=== PATIENT | female | born 1950 | race Caucasian/White ===

== ENCOUNTER 2019-03-15 13:39 | Emergency (ER) | payer MEDICARE ==
[2019-03-15] MEDS ORDERED: KETOROLAC TROMETHAMINE 60 MG/2 ML SDV IM ONE (15:22)
[2019-03-15] MEDS ORDERED: OXYCODONE HCL IR 5 MG TABLET PO ONE (15:22)
--- NOTE | 2019-03-15 15:27 | ER Document Report ---
HPI - HPI Time Seen by Provider: 03/15/19 15:11 Pain Level: 5 Notes: Patient is a 68-year-old female with a history of hypertension and type 2 diabetes as well as chronic back and joint pains under the care of pain management who presents complaining of right buttock pain that is been present for 5 days, but is a chronic issue otherwise. Patient states that she has had steroid injections under fluoroscopy in this area prior, but is not scheduled for another injection for another 9 days. Patient states that she is unable to get an appointment with her pain management provider before that. She is otherwise able to eat and drink without difficulty. She is urinating normally. Patient states that she has had to walk with a walker over the last several days because of the pain in her buttock. The pain does not radiate. Pain is described as a sharp pain. No injury. Denies any headache, fever, URI, sore throat, chest pain, palpitations, syncope, cough, shortness of breath, wheeze, dyspnea, abdominal pain, nausea/vomiting/diarrhea, urinary retention, dysuria, hematuria, loss of control of bowel or bladder, numbness/tingling, saddle anesthesia, muscle paralysis/weakness, or rash. - ROS Systems Reviewed and Negative: Yes All other systems reviewed and negative - REPRODUCTIVE Reproductive: DENIES: : Past Medical History - Social History Smoking Status: Never Smoker Family History: Reviewed & Not Pertinent - Past Medical History Cardiac Medical History: Reports: Hx Hypertension - STRESS INDUCED Denies: Hx Atrial Fibrillation, Hx Congestive Heart Failure, Hx Coronary Artery Disease, Hx Heart Attack, Hx Hypercholesterolemia, Hx Peripheral Vascular Disease, Hx Pulmonary Embolism, Hx Heart Murmur Pulmonary Medical History: Reports: Hx Tuberculosis - POSITIVE TB TEST IN THE , NEGATIVE CXR Denies: Hx Asthma, Hx Bronchitis, Hx COPD, Hx Pneumonia, Hx Respiratory Failure, Hx Sleep Apnea Neurological Medical History: Denies: Hx Cerebrovascular Accident, Hx Seizures Malignancy Medical History: Denies: Hx Lung Cancer GI Medical History: Reports: Hx Gastroesophageal Reflux Disease. Denies: Hx Crohn's Disease, Hx Hepatitis, Hx Hiatal Hernia, Hx Ulcer Musculoskeletal Medical History: Reports Hx Arthritis, Denies Hx Fibromyalgia, Denies Hx Muscular Dystrophy Traumatic Medical History: Denies: Hx Fractures Infectious Medical History: Denies: Hx Hepatitis Past Surgical History: Denies: Hx Hysterectomy, Hx Mastectomy, Hx Open Heart Surgery, Hx Pacemaker Vertical Provider Document - CONSTITUTIONAL Agree With Documented VS: Yes Notes: PHYSICAL EXAMINATION: GENERAL: Well-appearing, well-nourished and in no acute distress. LUNGS: Breath sounds clear to auscultation bilaterally and equal. No wheezes rales or rhonchi. HEART: Regular rate and rhythm ABDOMEN: Soft, nontender, nondistended abdomen. No guarding, no rebound. Normal bowel sounds present. No CVA tenderness bilaterally. No pulsatile mass Musculoskeletal: LE's b/l: FROM to passive/active. Strength 5+/5. No deficits noted. No bony tenderness of extremities. Back: FROM to passive/active. Strength 5+/5. No vertebral point tenderness, stepoffs, or deformities. No other bony tenderness, erythema, swelling, or ecchymosis. SLR negative b/l. + mild rt SI jt tenderness. No foot drop Extremities: No cyanosis, clubbing, or edema b/l. Peripheral pulses 2+. Capillary refill less than 2 seconds. NEUROLOGICAL: Normal speech, limping gait. Normal sensory, motor exams. Reflexes 2+ b/l. PSYCH: Normal mood, normal affect. SKIN: Warm, Dry, normal turgor, no rashes or lesions noted. - INFECTION CONTROL TRAVEL OUTSIDE OF THE [place] IN LAST 30 DAYS: No Course - Re-evaluation Re-evalutation: 03/15/19 15:24 Patient is an afebrile, well-hydrated, 68-year-old female who presents to the ED with acute on chronic rt buttock pain. Vitals are acceptable. PE is otherwise unremarkable for any focal neurological deficits. Patient was given Toradol and a single dose of Oxy-IR (no rx for home). She has no significant tachycardia, tachypnea, or hypoxia. She is nontoxic-appearing and is tolerating p.o. without difficulties. There are no signs of infection. No other red flag symptoms noted. No other labs or imaging warranted at this time based on H&P. Low suspicion for any meningitis, fracture, expanding/ruptured AAA, cauda equina syndrome, epidural mass lesion/abscess, herniated disc causing severe spinal stenosis, or other systemic infection at this time. Patient is aware that this condition can change from initial presentation and that she needs monitor symptoms closely for any acute changes. I will send her home with a pr escription for voltaren. Conservative measures otherwise for symptoms. Recheck with your PCM/Pain management in 3-5 days. Consider consult with orthopedic/physical therapy. Return to the ED with any worsening/concerning symptoms otherwise as reviewed discharge. Patient is in agreement. - Vital Signs Vital signs: Temp Pulse Resp BP Pulse Ox 98.2 F 101 H 18 140/82 H 99 03/15/19 13:44 03/15/19 13:44 03/15/19 13:44 03/15/19 13:44 03/15/19 13:44 Discharge - Discharge Clinical Impression: Right buttock pain Condition: Stable Disposition: HOME, SELF-CARE Additional Instructions: Rest, Ice, Compression, Elevation Tylenol/ibuprofen as needed Light stretches daily Strength exercises as able Moist heat and massage may help F/u with your PCP/Pain Management in 3-5 days for a recheck Consider consult(s) with Orthopedics/physical therapy for ongoing/worsening symptoms Return to the ED with any worsening symptoms and/or development of fever, headache, chest pain, palpitations, syncope, shortness of breath, trouble breathing, abdominal pain, n/v/d, muscle weakness/paralysis, numbness/tingling, swelling, redness, or other worsening symptoms that are concerning to you. Prescriptions: Diclofenac Sodium [Voltaren] 4 gm TP QID PRN #100 gel..gm. PRN Reason: Forms: Elevated Blood Pressure Referrals: SRIRAM HORTON MD [Primary Care Provider] - Follow up as needed [facility] [Provider Group] - Follow up as needed
[2019-03-15 16:11] VITALS: BP 155/64
== END 2019-03-15 16:10 | disposition home or self-care (01) ==
LOC: ER 13:39
DX: M79.10 Myalgia, unspecified site (principal); G89.29 Other chronic pain; E11.9 Type 2 diabetes mellitus without complications; I10 Essential (primary) hypertension
CPT/HCPCS: J1885; A9270

== ENCOUNTER → 2019-03-25 | Outpatient (CLI) | payer MEDICARE, OTHER ==
--- NOTE | 2019-03-25 11:58 | RADIOLOGY REPORT (SQ) ---
EXAM DESCRIPTION: CHEST PA/LATERAL COMPLETED DATE/TIME: 03/25/2019 11:34 am REASON FOR STUDY: PRE OP COMPARISON: None. EXAM PARAMETERS: NUMBER OF VIEWS: two views TECHNIQUE: Digital Frontal and Lateral radiographic views of the chest acquired. RADIATION DOSE: NA LIMITATIONS: none FINDINGS: LUNGS AND PLEURA: No opacities, masses or pneumothorax. No pleural effusion. MEDIASTINUM AND HILAR STRUCTURES: No masses or contour abnormalities. HEART AND VASCULAR STRUCTURES: Heart normal size. No evidence for failure. BONES: No acute findings. HARDWARE: None in the chest. OTHER: No other significant finding. IMPRESSION: NO SIGNIFICANT RADIOGRAPHIC FINDING IN THE CHEST. TECHNICAL DOCUMENTATION: JOB ID: [id number] [employer]- All Rights Reserved Reading location - IP/workstation name: [email or web address]
[2019-03-25 12:13] LABS: ABSOLUTE LYMPHOCYTES (AUTO) 2.2 10^3/uL (0.5-4.7); ABSOLUTE MONOCYTES (AUTO) 0.4 10^3/uL (0.1-1.4); ABSOLUTE NEUT (AUTO) 4.1 10^3/uL (1.7-8.2); BASOPHILS % (AUTO) 0.4 % (0-2); EOSINOPHILS % (AUTO) 0.1 % (0-6); HEMATOCRIT 32.5 % (36.0-47.0); HEMOGLOBIN 10.4 g/dL (12.0-15.5); LYMPHOCYTES % (AUTO) 32.7 % (13-45); MEAN CORPUSCULAR HEMOGLOBIN 22.1 pg (27.0-33.4); MEAN CORPUSCULAR HGB CONC 31.9 g/dL (32.0-36.0); MEAN CORPUSCULAR VOLUME 69 fl (80-97); MONOCYTES % (AUTO) 6.2 % (3-13); PLATELET COUNT 320 10^3/uL (150-450); RED BLOOD COUNT 4.69 10^6/uL (3.72-5.28); RED CELL DISTRIBUTION WIDTH 17.6 % (11.5-14.0); SEGMENTED NEUTROPHILS % (AUTO) 60.6 % (42-78); TOTAL CELLS COUNTED % (AUTO) 100 %; WHITE BLOOD COUNT 6.8 10^3/uL (4.0-10.5)
[2019-03-25 12:29] LABS: APPEARANCE,URINE CLEAR; BILIRUBIN,URINE NEGATIVE (NEGATIVE); COLOR,URINE YELLOW; GLUCOSE, URINE >=500 mg/dL (NEGATIVE); KETONES,URINE NEGATIVE (NEGATIVE); LEUKOCYTE ESTERASE,URINE NEGATIVE (NEGATIVE); NITRITE,URINE NEGATIVE (NEGATIVE); PROTEIN,URINE NEGATIVE (NEGATIVE); URINE SPECIFIC GRAVITY 1.014; UROBILINOGEN,URINE NEGATIVE mg/dL (<2.0)
[2019-03-25 12:44] LABS: ANION GAP 18 (5-19); BLOOD UREA NITROGEN 17 mg/dL (7-20); CALCIUM 10.8 mg/dL (8.4-10.2); CARBON DIOXIDE 21 mmol/L (22-30); CHLORIDE 98 mmol/L (98-107); GLUCOSE 202 mg/dL (75-110); POTASSIUM 4.8 mmol/L (3.6-5.0)
[2019-03-25 12:58] LABS: ADD MANUAL MICROSCOPIC YES
[2019-03-25 12:59] LABS: RBC,URINE NONE SEEN /HPF; WBC,URINE RARE /HPF
--- NOTE | 2019-03-26 08:46 | EKG REPORT ---
SEVERITY:- NORMAL ECG - SINUS RHYTHM : Confirmed by: Valentine Mcneil MD 26-Mar-2019 08:45:56
== END ==
LOC: OD 10:56
PROVIDERS: ATTEND Orthopaedic Surgery
DX: M16.11 Unilateral primary osteoarthritis, right hip (principal); I10 Essential (primary) hypertension; E11.9 Type 2 diabetes mellitus without complications
CPT/HCPCS: 36415; 71046; 80048; 81001; 83036; 85025; 93005; 93010

== ENCOUNTER → 2019-05-06 | Outpatient (CLI) | payer MEDICARE, OTHER ==
[2019-05-06 13:39] LABS: ABSOLUTE EOSINOPHILS # (AUTO) 0.2 10^3/uL (0.0-0.6); ABSOLUTE LYMPHOCYTES (AUTO) 2.2 10^3/uL (0.5-4.7); ABSOLUTE MONOCYTES (AUTO) 0.4 10^3/uL (0.1-1.4); ABSOLUTE NEUT (AUTO) 4.7 10^3/uL (1.7-8.2); BASOPHILS % (AUTO) 0.5 % (0-2); HEMATOCRIT 35.2 % (36.0-47.0); HEMOGLOBIN 11.2 g/dL (12.0-15.5); LYMPHOCYTES % (AUTO) 29.5 % (13-45); MEAN CORPUSCULAR HEMOGLOBIN 23.2 pg (27.0-33.4); MEAN CORPUSCULAR HGB CONC 31.7 g/dL (32.0-36.0); MEAN CORPUSCULAR VOLUME 73 fl (80-97); PLATELET COUNT 278 10^3/uL (150-450); RED BLOOD COUNT 4.82 10^6/uL (3.72-5.28); RED CELL DISTRIBUTION WIDTH 21.4 % (11.5-14.0); TOTAL CELLS COUNTED % (AUTO) 100 %; WHITE BLOOD COUNT 7.4 10^3/uL (4.0-10.5)
[2019-05-06 13:44] LABS: APPEARANCE,URINE CLEAR; BILIRUBIN,URINE NEGATIVE (NEGATIVE); COLOR,URINE STRAW; GLUCOSE, URINE 50 mg/dL (NEGATIVE); KETONES,URINE NEGATIVE (NEGATIVE); LEUKOCYTE ESTERASE,URINE SMALL (NEGATIVE); NITRITE,URINE NEGATIVE (NEGATIVE); PROTEIN,URINE NEGATIVE (NEGATIVE); URINE SPECIFIC GRAVITY 1.006; UROBILINOGEN,URINE NEGATIVE mg/dL (<2.0)
[2019-05-06 14:06] LABS: ANION GAP 18 (5-19); BLOOD UREA NITROGEN 9 mg/dL (7-20); CALCIUM 9.9 mg/dL (8.4-10.2); CARBON DIOXIDE 24 mmol/L (22-30); CHLORIDE 101 mmol/L (98-107); GLUCOSE 183 mg/dL (75-110); POTASSIUM 4.8 mmol/L (3.6-5.0)
== END ==
LOC: OD 11:48
PROVIDERS: ATTEND Orthopaedic Surgery
DX: Z01.812 Encounter for preprocedural laboratory examination (principal); M16.11 Unilateral primary osteoarthritis, right hip; E11.9 Type 2 diabetes mellitus without complications; I10 Essential (primary) hypertension
CPT/HCPCS: 36415; 80048; 81001; 83036; 85025

== ENCOUNTER 2019-05-26 05:12 | Inpatient (IN) | payer MEDICARE, OTHER ==
[~2019-05-26 05:12] MED LIST: BUPIVACAINE INJ/PF LIPOSOME/PF 266 MG/20 ML SDV INJ PRN; CEFAZOLIN INJ 1 GM VIAL IV PRN; IBUPROFEN 800 MG in NORMAL SALINE 250 ML IV PRN; LACTATED RINGERS 1000 ML IV PRN; LIDOCAINE 0.5% INJ-PF (5 MG/ML) 50 ML SDV SUBCUT PRN; ONDANSETRON HCL INJ/PF 4 MG/2 ML SDV ONE; OXYCODONE HCL SR 10 MG TABLET PO PRN; PANTOPRAZOLE SODIUM 20 MG TABLET.DR PO PRN; PHENYLEPHRINE HCL INJ/PF 10 MG/1 ML SDV ONE; VANCOMYCIN HCL 1,000 MG in DEXTROSE 5%-WATER 250 ML IV SCH
[2019-05-26] MEDS ORDERED: PANTOPRAZOLE SODIUM 20 MG TABLET.DR PO ONE (06:14)
[2019-05-26] MEDS ORDERED: CEFAZOLIN INJ 1 GM VIAL ONE (06:14)
[2019-05-26] MEDS ORDERED: OXYCODONE HCL SR 10 MG TABLET PO ONE (06:14)
[2019-05-26] MEDS ORDERED: MIDAZOLAM 2 MG/2 ML INJ ONE (06:55)
[2019-05-26] MEDS ORDERED: FENTANYL CITRATE INJ/PF 100 MCG/2 ML AMPUL ONE (06:55)
[2019-05-26] MEDS ORDERED: KETAMINE HCL INJ 500 MG/10 ML VIAL ONE (06:55)
[2019-05-26] MEDS ORDERED: PROPOFOL INJ 200 MG/20 ML VIAL IV ONE (06:56)
[2019-05-26] MEDS ORDERED: TRANEXAMIC ACID INJ/PF 1,000 MG/10 ML SDV ONE ×2 (07:10→09:29)
[2019-05-26 07:44] LABS: POTASSIUM 3.7 mmol/L (3.6-5.0)
[2019-05-26] MEDS ORDERED: DIPHENHYDRAMINE HCL 50 MG/ML VIAL IV PRN ×2 (08:09→08:32)
[2019-05-26] MEDS ORDERED: PROMETHAZINE HCL INJ 25 MG/1 ML VIAL IV PRN (08:09)
[2019-05-26] MEDS ORDERED: MORPHINE SULFATE 10 MG/ML INJ IV PRN (08:09)
[2019-05-26] MEDS ORDERED: MEPERIDINE HCL/PF INJ 25 MG/1 ML DISP.SYRIN IV PRN (08:09)
[2019-05-26] MEDS ORDERED: FENTANYL CITRATE INJ/PF 100 MCG/2 ML AMPUL IV PRN ×3 (08:09)
--- NOTE | 2019-05-26 08:30 | Operative Report ---
Operative Report DATE OF SURGERY: 05/26/19 PREOPERATIVE DIAGNOSIS: Right hip arthritis OPERATION: Right hip arthroplasty SURGEON: VERA AGARWAL ANESTHESIA: Spinal TISSUE REMOVED OR ALTERED: Femoral head to pathology ESTIMATED BLOOD LOSS: 75 PROCEDURE: Implants used: Femur: Nicolas Accolade 2 size 3 stem Acetabular shell: 52 mm hemispherical shell Liner: 36 mm flat cross-link polyethylene liner Head: 36 mm chrome cobalt head standard neck The patient is placed in a left lateral decubitus position on the operating table. The right lower extremity and hindquarter is prepped and draped in a sterile fashion. A curvilinear incision was made over the greater trochanter a posterior approach the hip was taken. The femoral head is dislocated and the femoral neck transected using an oscillating saw. Attention was next turned to the acetabulum. Soft tissues cleared off the acetabulum using electrocautery. The acetabulum was then prepared using a series of hemispherical reamers until a 52 millimeters reamer is seated. Subsequently a 52 millimeters Alva titanium hemispherical shell is impacted into position. A standard flat 36 millimeters cross-link liner is impacted into the shell. Attention was next turned to the femur. Access is gained to the femoral canal using a box osteotome to the piriformis fossa. The femur is then prepared using a series of broaches until a number 3 broach is seated. A trial reduction was now performed using a 36 millimeters head with standard neck. Preoperative leg length was recreated and is excellent anterior posterior stability. A decision was made to proceed with the above construct. All trial implants were removed. The wound is irrigated with pulsed lavage. A number 3 stem is impacted into the femoral canal. A trial reduction was again performed with a 36 mm head and a standard neck. Findings as previously. The hip was dislocated one last time and the final chrome-cobalt head is impacted onto the trunnion. The hip was reduced. Wound is copiously irrigated with pulsed lavage. Sent closed in layers using interrupted Vicryl followed by husam. A sterile dressing is applied and the patient's returned to recovery room in satisfactory patient.
[2019-05-26] MEDS ORDERED: MAG HYDROX/AL HYDROX/SIMETH SUSP 30 ML UDCUP PO PRN (08:32)
[2019-05-26] MEDS ORDERED: ZOLPIDEM TARTRATE 5 MG TABLET PO PRN (08:32)
[2019-05-26] MEDS ORDERED: ONDANSETRON 4 MG TAB.RAPDIS PO PRN (08:32)
[2019-05-26] MEDS ORDERED: RINGERS SOLUTION,LACTATED 1,000 ML IV PRN (08:32)
[2019-05-26] MEDS ORDERED: GLUCAGON,HUMAN RECOMB 1 MG INJ IM PRN (09:00)
[2019-05-26] MEDS ORDERED: DEXTROSE 40% GEL 15 GM TUBE PO PRN (09:00)
[2019-05-26] MEDS ORDERED: DEXTROSE 50%-WATER SYRINGE 25 GM/50 ML DOSE IV PRN (09:00)
[2019-05-26] MEDS ORDERED: DEXTROSE 50%-WATER SYRINGE 12.5 GM/25 ML DOSE IV PRN (09:00)
[2019-05-26] MEDS ORDERED: DEXTROSE 40% GEL 15 GM TUBE X 2 PO PRN (09:00)
--- NOTE | 2019-05-26 09:24 | RADIOLOGY REPORT (SQ) ---
EXAM DESCRIPTION: PELVIS AP COMPLETED DATE/TIME: 05/26/2019 9:15 am REASON FOR STUDY: Post Op Long Cassette in PACU M16.11 UNILATERAL PRIMARY OSTEOARTHRITIS, RIGHT H IP COMPARISON: None. NUMBER OF VIEWS: One view(s). TECHNIQUE: Digital radiographic images of the right hip post-procedure. LIMITATIONS: None. FINDINGS: BONES: No worrisome or unexpected findings post-procedure. DEVICE: Total hip replacement. Components of the device in appropriate location. SOFT TISSUES: No worrisome findings. Expected postoperative soft tissue changes. Large calcified u terine fibroid is noted. IMPRESSION: SATISFACTORY POSTOPERATIVE RIGHT HIP. TECHNICAL DOCUMENTATION: JOB ID: [id number] [employer]- All Rights Reserved Reading location - IP/workstation name: [email or web address]
[2019-05-26] MEDS ORDERED: ONDANSETRON HCL INJ/PF 4 MG/2 ML SDV ONE (09:42)
[2019-05-26] MEDS ORDERED: TRANEXAMIC ACID INJ/PF 1,000 MG/10 ML SDV IV ONE (10:00)
[2019-05-26] MEDS: INSULIN LISPRO 100 UNIT/ML 3 ML VIAL SUBCUT SCH ×3 (13:34→21:23)
[2019-05-26] MEDS: OXYCODONE HCL IR 5 MG TABLET PO PRN ×2 (13:41→20:58)
[2019-05-26] MEDS: IBUPROFEN 800 MG in NORMAL SALINE 250 ML IV SCH ×2 (13:57→21:34)
[2019-05-26] MEDS: ASPIRIN 81 MG TABLET, ENT COATED PO SCH (14:00)
[2019-05-26] MEDS: SENNOSIDES/DOCUSATE 8.6-50 MG 1 EACH TABLET PO SCH (17:05)
[2019-05-26] MEDS: PREGABALIN 75 MG CAPSULE PO SCH ×2 (17:05→18:37)
[2019-05-26] MEDS: ACETAMINOPHEN 325 MG TABLET PO PRN (17:05)
[2019-05-26] MEDS ORDERED: (PENDING PHARMACY ID) (Diclofenac Sodium [Voltaren] 4 GM) TP PRN (17:52)
[2019-05-26] MEDS ORDERED: PANTOPRAZOLE SODIUM 40 MG TABLET.DR PO PRN (17:52)
[2019-05-26] MEDS ORDERED: (PENDING PHARMACY ID) (Naproxen [Naprosyn] 500 MG) PO PRN (17:52)
[2019-05-26] MEDS ORDERED: TIZANIDINE HCL 4 MG TABLET PO PRN (17:52)
[2019-05-26] MEDS ORDERED: NAPROXEN 250 MG TABLET PO PRN (17:58)
[2019-05-26] MEDS ORDERED: (PENDING PHARMACY ID) (Buprenorphine [Butrans] 1 PATCH) TD SCH (18:00)
[2019-05-26] MEDS: PREGABALIN 100 MG CAPSULE PO SCH ×2 (18:00→21:23)
[2019-05-26] MEDS ORDERED: PREGABALIN 100 MG CAPSULE ONE (18:39)
[2019-05-26] MEDS ORDERED: VANCOMYCIN HCL 1,000 MG in DEXTROSE 5%-WATER 250 ML IV ONE (20:30)
[2019-05-26] MEDS: OXYCODONE HCL SR 10 MG TABLET PO SCH (21:22)
[2019-05-26] MEDS: ONDANSETRON HCL INJ/PF 4 MG/2 ML SDV IV PRN (21:23)
[2019-05-26] MEDS: INSULIN GLARGINE,HUM.REC.ANLOG 1,000 UNIT/10 ML VIAL SUBCUT SCH (21:24)
[2019-05-27] MEDS: IBUPROFEN 800 MG in NORMAL SALINE 250 ML IV SCH ×3 (05:07→21:40)
[2019-05-27] MEDS: PANTOPRAZOLE SODIUM 40 MG TABLET.DR PO SCH (05:08)
[2019-05-27 06:02] LABS: HEMATOCRIT 29.2 % (36.0-47.0); HEMOGLOBIN 9.6 g/dL (12.0-15.5); MEAN CORPUSCULAR HEMOGLOBIN 24.1 pg (27.0-33.4); MEAN CORPUSCULAR HGB CONC 32.7 g/dL (32.0-36.0); MEAN CORPUSCULAR VOLUME 74 fl (80-97); PLATELET COUNT 215 10^3/uL (150-450); RED BLOOD COUNT 3.96 10^6/uL (3.72-5.28); WHITE BLOOD COUNT 6.3 10^3/uL (4.0-10.5)
[2019-05-27 06:21] LABS: ANION GAP 8 (5-19); BLOOD UREA NITROGEN 8 mg/dL (7-20); CALCIUM 8.8 mg/dL (8.4-10.2); CARBON DIOXIDE 30 mmol/L (22-30); CHLORIDE 102 mmol/L (98-107); GLUCOSE 170 mg/dL (75-110)
--- NOTE | 2019-05-27 07:21 | PDOC PROGRESS REPORT ---
Subjective Progress Note for:: 05/27/19 Reason For Visit: M16.11 UNILATERAL PRIMARY OSTEOARTHRITIS, RIGHT HI 68-year-old female now postop day 1 status post right hip arthroplasty. Limited progress with physical therapy yesterday because of complaints of pain. Physical Exam Vital Signs: Temp Pulse Resp BP Pulse Ox 36.8 C 83 18 139/48 H 96 05/26/19 17:00 05/26/19 17:00 05/26/19 17:00 05/26/19 17:00 05/26/19 17:00 Intake & Output 05/26/19 05/27/19 05/28/19 06:59 06:59 06:59 Intake Total 0 5609 Output Total 4099 Balance 0 1510 Weight 85 kg Physical Exam: When I enter the room the patient sleeping soundly. She is awoken. She states that her pain is under better control at this point. She continues to have problems with active flexion of the lower extremity because of pain. General appearance: PRESENT: no acute distress, mild distress Head exam: PRESENT: normocephalic Respiratory exam: PRESENT: unlabored Cardiovascular exam: PRESENT: RRR Pulses: PRESENT: +1 pedal pulses bilateral GI/Abdominal exam: PRESENT: soft Rectal exam: PRESENT: deferred Extremities exam: PRESENT: other - Right hip dressing clean dry and intact. Leg lengths equal. Distal neurovascular examination is intact. Musculoskeletal exam: PRESENT: other Neurological exam: PRESENT: alert, awake, oriented to person, oriented to place, oriented to time, oriented to situation. ABSENT: motor sensory deficit Psychiatric exam: PRESENT: appropriate affect, normal mood. ABSENT: homicidal ideation, suicidal ideation Skin exam: PRESENT: dry, intact, warm. ABSENT: cyanosis, rash Results Laboratory Results: 05/27/19 03:52 05/27/19 03:52 05/26/19 05/26/19 05/27/19 05:50 05:50 03:52 WBC 6.3 RBC 3.96 Hgb 9.6 L Hct 29.2 L MCV 74 L MCH 24.1 L MCHC 32.7 RDW 20.0 H Plt Count 215 Sodium Potassium 3.7 Chloride Carbon Dioxide Anion Gap BUN Creatinine Est GFR ( Amer) Glucose 120 H Calcium Blood Type O POSITIVE Antibody Screen NEGATIVE 05/27/19 03:52 WBC RBC Hgb Hct MCV MCH MCHC RDW Plt Count Sodium 139.8 Potassium 4.0 Chloride 102 Carbon Dioxide 30 Anion Gap 8 BUN 8 Creatinine 0.67 Est GFR ( Amer) > 60 Glucose 170 H Calcium 8.8 Blood Type Antibody Screen Impressions: Pelvis X-Ray 05/26/19 08:33 IMPRESSION: SATISFACTORY POSTOPERATIVE RIGHT HIP. Status: Imported from PACS Assessment & Plan - Diagnosis (1) Arthritis of right hip Is this a current diagnosis for this admission?: Yes Plan: Patient to be mobilized with physical therapy and weightbearing as tolerated basis. Patient anticipates discharge home with home health services. She is advised that she needs to approach physical therapy aggressively in order for her to have the necessary functional level to permit this to happen. - Time Time Spent with patient: 15-24 minutes Anticipated discharge: Home with Homehealth Within: within 24 hours
[2019-05-27] MEDS: INSULIN LISPRO 100 UNIT/ML 3 ML VIAL SUBCUT SCH ×4 (08:00→21:41)
[2019-05-27] MEDS: METFORMIN HCL 500 MG TABLET PO SCH ×2 (11:00→16:00)
[2019-05-27] MEDS: PRENATAL VITAMIN W DHA CAPSULE PO SCH (11:40)
[2019-05-27] MEDS: OXYCODONE HCL SR 10 MG TABLET PO SCH ×2 (11:41→21:40)
[2019-05-27] MEDS: SENNOSIDES/DOCUSATE 8.6-50 MG 1 EACH TABLET PO SCH ×2 (11:41→18:29)
[2019-05-27] MEDS: ATORVASTATIN CALCIUM 40 MG TABLET PO SCH (11:41)
[2019-05-27] MEDS: ACETAMINOPHEN 325 MG TABLET PO PRN ×2 (11:42→17:11)
[2019-05-27] MEDS: LOSARTAN POTASSIUM 50 MG TABLET PO SCH (11:42)
[2019-05-27] MEDS: PREGABALIN 100 MG CAPSULE PO SCH ×3 (11:43→21:41)
[2019-05-27] MEDS: ASPIRIN 81 MG TABLET, ENT COATED PO SCH (11:43)
[2019-05-27] MEDS: HYDROCHLOROTHIAZIDE 25 MG TABLET PO SCH (11:49)
[2019-05-27] MEDS: PREGABALIN 75 MG CAPSULE PO SCH ×2 (11:51→18:30)
[2019-05-27] MEDS: OXYCODONE HCL IR 5 MG TABLET PO PRN (17:10)
[2019-05-27] MEDS: ONDANSETRON HCL INJ/PF 4 MG/2 ML SDV IV PRN (21:40)
[2019-05-27] MEDS: INSULIN GLARGINE,HUM.REC.ANLOG 1,000 UNIT/10 ML VIAL SUBCUT SCH (21:42)
[2019-05-28] MEDS: IBUPROFEN 800 MG in NORMAL SALINE 250 ML IV SCH ×2 (05:04→14:16)
[2019-05-28] MEDS: PANTOPRAZOLE SODIUM 40 MG TABLET.DR PO SCH (05:05)
[2019-05-28 06:25] LABS: HEMATOCRIT 26.7 % (36.0-47.0); HEMOGLOBIN 8.8 g/dL (12.0-15.5); MEAN CORPUSCULAR HEMOGLOBIN 24.5 pg (27.0-33.4); MEAN CORPUSCULAR HGB CONC 33.1 g/dL (32.0-36.0); MEAN CORPUSCULAR VOLUME 74 fl (80-97); PLATELET COUNT 187 10^3/uL (150-450); RED BLOOD COUNT 3.61 10^6/uL (3.72-5.28); RED CELL DISTRIBUTION WIDTH 19.9 % (11.5-14.0); WHITE BLOOD COUNT 6.4 10^3/uL (4.0-10.5)
--- NOTE | 2019-05-28 07:16 | PDOC DISCHARGE SUMMARY ---
Impression - Admit/DC Date/PCP Admission Date/Primary Care Provider: 05/26/19 05:12 KINJAL SU, CHAKA Discharge Date: 05/28/19 - Discharge Diagnosis (1) Arthritis of right hip Is this a current diagnosis for this admission?: Yes - Additional Information Resuscitation Status: Full Code Discharge Diet: Regular Discharge Activity: Balance Activity w/Rest, No tub bath Referrals: VERA AGARWAL MD [ACTIVE STAFF] - 06/15/19 1:00 pm Home Medications: Atorvastatin Calcium [Lipitor 40 mg Tablet] 40 mg PO DAILY 10/15/13 Hydrochlorothiazide 25 mg PO DAILY 10/15/13 Insulin Glargine,Hum.rec.anlog [Lantus] 40 unit SQ QHS 10/15/13 Losartan Potassium [Cozaar 50 mg Tablet] 50 mg PO DAILY 10/15/13 Dulaglutide [Trulicity] 0.75 mg SQ WE@1000 05/18/19 Pantoprazole Sodium [Protonix [address] Tablet] 40 mg PO DAILYP PRN 05/18/19 Pregabalin [Lyrica 100 mg Capsule] 100 mg PO BID 05/18/19 Pregabalin [Lyrica] 300 mg PO QHS 05/18/19 Buprenorphine [Butrans] 1 patch TD Q7D 05/26/19 Diclofenac Sodium [Voltaren] 4 gm TP BIDP PRN 05/26/19 Metformin HCl [Glucophage 500 mg Tablet] 1,000 mg PO BIDACBS 05/26/19 Naproxen [Naprosyn] 500 mg PO BIDP PRN 05/26/19 Tizanidine HCl 4 mg PO Q8HP PRN 05/26/19 History of Present Illiness History of Present Illness: KATIE ZUNIGA is a 68 year old female 68-year-old white female with progressive right hip pain and functional disability second osteoarthritis. Patient is admitted for elective right hip arthroplasty. Hospital Course Hospital Course: Patient is admitted through the operating where she undergoes unconjugated right hip arthroplasty. She is returned to floor in satisfactory condition. She makes slow progress with physical therapy. Physical Exam Vital Signs: Temp Pulse Resp BP Pulse Ox 37.2 C 81 17 127/63 H 99 05/27/19 23:42 05/27/19 23:42 05/27/19 23:42 05/27/19 23:42 05/27/19 23:42 Intake & Output 05/27/19 05/28/19 05/29/19 06:59 06:59 06:59 Intake Total 5609 1896 Output Total 4099 Balance 1510 1896 Weight 85 kg 84.6 kg General appearance: PRESENT: no acute distress, mild distress Head exam: PRESENT: normocephalic Respiratory exam: PRESENT: unlabored Cardiovascular exam: PRESENT: RRR Pulses: PRESENT: +1 pedal pulses bilateral Vascular exam: PRESENT: normal capillary refill GI/Abdominal exam: PRESENT: soft Rectal exam: PRESENT: deferred Musculoskeletal exam: PRESENT: other - Right hip dressing clean dry and intact. Leg lengths are equal. Distal neurovascular examination is intact. Neurological exam: PRESENT: alert, awake, oriented to person, oriented to place, oriented to time, oriented to situation. ABSENT: motor sensory deficit Psychiatric exam: PRESENT: appropriate affect, normal mood. ABSENT: homicidal ideation, suicidal ideation Skin exam: PRESENT: dry, intact, warm. ABSENT: cyanosis, rash Results Laboratory Results: WBC 6.4 10^3/uL (4.0-10.5) 05/28/19 04:57 RBC 3.61 10^6/uL (3.72-5.28) L 05/28/19 04:57 Hgb 8.8 g/dL (12.0-15.5) L 05/28/19 04:57 Hct 26.7 % (36.0-47.0) L 05/28/19 04:57 MCV 74 fl (80-97) L 05/28/19 04:57 MCH 24.5 pg (27.0-33.4) L 05/28/19 04:57 MCHC 33.1 g/dL (32.0-36.0) 05/28/19 04:57 RDW 19.9 % (11.5-14.0) H 05/28/19 04:57 Plt Count 187 10^3/uL (150-450) 05/28/19 04:57 Sodium 139.8 mmol/L (137-145) 05/27/19 03:52 Potassium 4.0 mmol/L (3.6-5.0) 05/27/19 03:52 Chloride 102 mmol/L (98-107) 05/27/19 03:52 Carbon Dioxide 30 mmol/L (22-30) 05/27/19 03:52 Anion Gap 8 (5-19) 05/27/19 03:52 BUN 8 mg/dL (7-20) 05/27/19 03:52 Creatinine 0.67 mg/dL (0.52-1.25) 05/27/19 03:52 Est GFR ( Amer) > 60 (>60) 05/27/19 03:52 Est GFR (MDRD) Non-Af > 60 (>60) 05/27/19 03:52 Glucose 170 mg/dL (75-110) H 05/27/19 03:52 POC Glucose 221 mg/dL (70-110) H 05/28/19 06:11 Calcium 8.8 mg/dL (8.4-10.2) 05/27/19 03:52 Blood Type O POSITIVE 05/26/19 05:50 Antibody Screen NEGATIVE 05/26/19 05:50 Impressions: Pelvis X-Ray 05/26/19 08:33 IMPRESSION: SATISFACTORY POSTOPERATIVE RIGHT HIP. Plan Plan of Treatment: Patient be discharged home with home health services and DME. Follow-up with Dr. Agarwal [facility] for surgery in 2 weeks for staple removal. Stroke Is this a Stroke Patient?: No Stroke Pt being discharged on Anti-thrombolytic therapy?: Yes Acute Heart Failure - Is this a Heart Failure Patient?: No
[2019-05-28] MEDS: INSULIN LISPRO 100 UNIT/ML 3 ML VIAL SUBCUT SCH ×2 (07:54→12:35)
[2019-05-28] MEDS: METFORMIN HCL 500 MG TABLET PO SCH (07:54)
[2019-05-28] MEDS: OXYCODONE HCL SR 10 MG TABLET PO SCH (09:42)
[2019-05-28] MEDS: LOSARTAN POTASSIUM 50 MG TABLET PO SCH (09:43)
[2019-05-28] MEDS: ASPIRIN 81 MG TABLET, ENT COATED PO SCH (09:43)
[2019-05-28] MEDS: PREGABALIN 100 MG CAPSULE PO SCH (09:43)
[2019-05-28] MEDS: PRENATAL VITAMIN W DHA CAPSULE PO SCH (09:43)
[2019-05-28] MEDS: SENNOSIDES/DOCUSATE 8.6-50 MG 1 EACH TABLET PO SCH (09:43)
[2019-05-28] MEDS: ATORVASTATIN CALCIUM 40 MG TABLET PO SCH (09:43)
[2019-05-28] MEDS: HYDROCHLOROTHIAZIDE 25 MG TABLET PO SCH (09:43)
[2019-05-28 15:49] VITALS: BP 127/63
[2019-06-02] MEDS ORDERED: (PENDING PHARMACY ID) (Dulaglutide [Trulicity] 0.75 MG) SQ SCH (10:00)
== END 2019-05-28 16:00 | disposition home health service (06) | DRG 470 ==
LOC: INOR 05:12 → 4N 12:02
PROVIDERS: ADMIT Orthopaedic Surgery; ATTEND Orthopaedic Surgery
PROC: 0SR902Z Replacement of Right Hip Joint with Metal on Polyethylene Synthetic Substitute, Open Approach (ICD-10-PCS; principal; 2019-05-26 07:30)
DX: M16.11 Unilateral primary osteoarthritis, right hip (principal); D64.9 Anemia, unspecified; K21.9 Gastro-esophageal reflux disease without esophagitis; E78.5 Hyperlipidemia, unspecified; M48.061 Spinal stenosis, lumbar region without neurogenic claudication; F41.9 Anxiety disorder, unspecified; E66.3 Overweight; M25.552 Pain in left hip; Z79.82 Long term (current) use of aspirin; Z79.4 Long term (current) use of insulin; Z88.8 Allergy status to other drugs, medicaments and biological substances; Z87.891 Personal history of nicotine dependence
CPT/HCPCS: 01214; 36415; 72170; 80048; 82947; 82962; 84132; 85027; 86850; 86900; 86901; 88305; 88311; 94799; C1776; J0690; J1741; J1815; J2250; J2370; J2405; J2704; J3010; J3370; J3490; J7050; J7060

== ENCOUNTER 2019-06-04 13:08 | Inpatient (IN) | payer MEDICARE, OTHER ==
[2019-06-04 13:35] LABS: HEMATOCRIT 33.1 % (36.0-47.0); HEMOGLOBIN 10.8 g/dL (12.0-15.5); MEAN CORPUSCULAR HEMOGLOBIN 24.1 pg (27.0-33.4); MEAN CORPUSCULAR HGB CONC 32.6 g/dL (32.0-36.0); MEAN CORPUSCULAR VOLUME 74 fl (80-97); PLATELET COUNT 386 10^3/uL (150-450); RED BLOOD COUNT 4.48 10^6/uL (3.72-5.28); RED CELL DISTRIBUTION WIDTH 19.5 % (11.5-14.0); WHITE BLOOD COUNT 8.2 10^3/uL (4.0-10.5)
[2019-06-04] MEDS ORDERED: ASPIRIN 81 MG TABLET, CHEWABLE PO ONE ×2 (13:36→22:37)
--- NOTE | 2019-06-04 13:41 | ER Document Report ---
ED Medical Screen (RME) - General Chief Complaint: Chest Pain Stated Complaint: CHEST DISCOMFORT Time Seen by Provider: 06/04/19 13:36 Primary Care Provider: KINJAL SU IDC [Primary Care Provider] - Follow up as needed Mode of Arrival: Medic Information source: Patient Notes: 68-year-old female presented ED for complaint of chest pain shortness of breath. She states is been since morning. She has not had any history of this in the past. She denies any smoking drinking or use of illicit drugs. She does not have history of this in the past. I have greeted and performed a rapid initial assessment of this patient. A comprehensive ED assessment and evaluation of the patient, analysis of test results and completion of medical decision making process will be conducted by an additional ED providers. TRAVEL OUTSIDE OF THE [place] IN LAST 30 DAYS: No - Related Data Allergies/Adverse Reactions: lisinopril [Lisinopril] Allergy (Unknown, Verified 03/15/19 13:40) Swelling of tongue amlodipine [From Norvasc] Allergy (Verified 05/26/19 07:06) Past Medical History - Past Medical History Cardiac Medical History: Reports: Hx Hypertension - STRESS INDUCED Denies: Hx Atrial Fibrillation, Hx Congestive Heart Failure, Hx Coronary Artery Disease, Hx Heart Attack, Hx Hypercholesterolemia, Hx Peripheral Vascular Disease, Hx Pulmonary Embolism, Hx Heart Murmur Pulmonary Medical History: Reports: Hx Tuberculosis - POSITIVE TB TEST IN THE , NEGATIVE CXR Denies: Hx Asthma, Hx Bronchitis, Hx COPD, Hx Pneumonia, Hx Respiratory Failure, Hx Sleep Apnea Neurological Medical History: Denies: Hx Cerebrovascular Accident, Hx Seizures Endocrine Medical History: Denies: Hx Graves' Disease, Hx Hyperthyroidism, Hx Hypothyroidism Renal/ Medical History: Denies: Hx Kidney Stones, Hx Peritoneal Dialysis Malignancy Medical History: Denies: Hx Leukemia, Hx Lung Cancer GI Medical History: Reports: Hx Gastroesophageal Reflux Disease. Denies: Hx Crohn's Disease, Hx Hepatitis, Hx Hiatal Hernia, Hx Irritable Bowel, Hx Liver Failure, Hx Pancreatitis, Hx Ulcer Musculoskeltal Medical History: Reports Hx Arthritis, Denies Hx Fibromyalgia, Denies Hx Muscular Dystrophy, Denies Hx Systemic Lupus Erythematosus Traumatic Medical History: Denies: Hx Fractures Infectious Medical History: Denies: Hx Hepatitis, Hx HIV Past Surgical History: Denies: Hx Colostomy, Hx Hysterectomy, Hx Mastectomy, Hx Open Heart Surgery, Hx Pacemaker Physical Exam - Vital signs Vitals: Resp 27 H 06/04/19 13:11 Course - Vital Signs Vital signs: Temp Pulse Resp BP Pulse Ox 98.2 F 21 H 153/87 H 80 L 06/04/19 13:13 06/04/19 13:14 06/04/19 13:14 06/04/19 13:14 - Laboratory Result Diagrams: 06/04/19 12:54 06/04/19 12:54 Doctor's Discharge - Discharge Referrals: KINJAL SU IDC [Primary Care Provider] - Follow up as needed
[2019-06-04 13:48] LABS: ALKALINE PHOSPHATASE 90 U/L (38-126); ANION GAP 13 (5-19); ASPARTATE AMINO TRANSFERASE 19 U/L (14-36); BILIRUBIN,DIRECT 0.2 mg/dL (0.0-0.4); BILIRUBIN,TOTAL 0.5 mg/dL (0.2-1.3); BLOOD UREA NITROGEN 9 mg/dL (7-20); CALCIUM 10.2 mg/dL (8.4-10.2); CARBON DIOXIDE 28 mmol/L (22-30); CHLORIDE 99 mmol/L (98-107); CREATINE KINASE 51 U/L (30-135); GLUCOSE 147 mg/dL (75-110); POTASSIUM 4.4 mmol/L (3.6-5.0); TOTAL PROTEIN 7.4 g/dL (6.3-8.2)
[2019-06-04 13:59] LABS: CREATINE KINASE MB 0.97 ng/mL (<4.55)
[2019-06-04 14:02] LABS: ABSOLUTE LYMPHOCYTES# (MANUAL) 1.6 10^3/uL (0.5-4.7); ABSOLUTE MONOCYTES # (MANUAL) 0.2 10^3/uL (0.1-1.4); BAND NEUTROPHILS % (MANUAL) 1 % (3-5); BASOPHILS % (MANUAL) 0 % (0-2); EOSINOPHILS % (MANUAL) 2 % (0-6); LYMPHOCYTES % (MANUAL) 16 % (13-45); METAMYELOCYTES % (MANUAL) 1 % (0-1); MONOCYTES % (MANUAL) 3 % (3-13); NUCLEATED RED BLOOD CELLS 1 /100 WBC (0); SEGMENTED NEUTROPHILS % (MAN) 73 % (42-78); TOTAL CELLS COUNTED 100
[2019-06-04 14:03] LABS: POLYCHROMASIA SLIGHT
--- NOTE | 2019-06-04 14:03 | RADIOLOGY REPORT (SQ) ---
EXAM DESCRIPTION: CHEST SINGLE VIEW COMPLETED DATE/TIME: 06/04/2019 1:49 pm REASON FOR STUDY: chest pain COMPARISON: PA and lateral views of the chest from 03/25/2019 EXAM PARAMETERS: NUMBER OF VIEWS: One view. TECHNIQUE: Single frontal radiographic view of the chest acquired. RADIATION DOSE: NA LIMITATIONS: None. FINDINGS: LUNGS AND PLEURA: Low inspiratory lung volumes. The curvilinear bibasilar opacities could represent strand of atelectasis. There is no consolidation, pleural effusion or pneumothorax. MEDIASTINUM AND HILAR STRUCTURES: Stable mediastinal and hilar contours. HEART AND VASCULAR STRUCTURES: The cardiac silhouette and pulmonary vasculature are within normal knox its given the low inspiratory lung volumes BONES: No acute findings. HARDWARE: None in the chest. OTHER: No other finding. IMPRESSION: Low inspiratory lung volumes and bibasilar atelectasis without a superimposed acute card iopulmonary process. TECHNICAL DOCUMENTATION: JOB ID: [id number] [facility]- All Rights Reserved Reading location - IP/workstation name: [email or web address]
[2019-06-04 14:04] LABS: ANISOCYTOSIS 2+; OVALOCYTES SLIGHT; PLATELET COMMENT ADEQUATE; PLATELET LARGE PRESENT; POIKILOCYTOSIS SLIGHT
[2019-06-04 14:15] LABS: TROPONIN I 0.069 ng/mL
--- NOTE | 2019-06-04 15:00 | EKG REPORT ---
SEVERITY:- NORMAL ECG - SINUS RHYTHM : Confirmed by: Jose Cavazos MD 04-Jun-2019 14:59:45
--- NOTE | 2019-06-04 15:38 | ER Document Report ---
ED Cardiac - General Chief Complaint: Chest Pain Stated Complaint: CHEST DISCOMFORT Time Seen by Provider: 06/04/19 13:36 Primary Care Provider: KINJAL SU IDC [Primary Care Provider] - Follow up as needed Mode of Arrival: Medic Notes: 68-year-old woman presents to the emergency department with complaint of chest pain which began this morning. She has a history of a total right hip r eplacement surgery 2 weeks ago. She also complained of associated shortness of breath and nonradiating chest pain. She rates the pain 01/20, no history of known coronary artery disease. She has a history of hypertension and diabetes mellitus. TRAVEL OUTSIDE OF THE [place] IN LAST 30 DAYS: No - Related Data Allergies/Adverse Reactions: lisinopril [Lisinopril] Allergy (Unknown, Verified 03/15/19 13:40) Swelling of tongue amlodipine [From Norvasc] Allergy (Verified 05/26/19 07:06) Past Medical History - General Information source: Patient - Social History Smoking Status: Unknown if Ever Smoked Family History: Reviewed & Not Pertinent Patient has suicidal ideation: No Patient has homicidal ideation: No - Past Medical History Cardiac Medical History: Reports: Hx Hypertension - STRESS INDUCED Denies: Hx Atrial Fibrillation, Hx Congestive Heart Failure, Hx Coronary Artery Disease, Hx Heart Attack, Hx Hypercholesterolemia, Hx Peripheral Vascular Disease, Hx Pulmonary Embolism, Hx Heart Murmur Pulmonary Medical History: Reports: Hx Tuberculosis - POSITIVE TB TEST IN THE , NEGATIVE CXR Denies: Hx Asthma, Hx Bronchitis, Hx COPD, Hx Pneumonia, Hx Respiratory Failure, Hx Sleep Apnea Neurological Medical History: Denies: Hx Cerebrovascular Accident, Hx Seizures Endocrine Medical History: Denies: Hx Graves' Disease, Hx Hyperthyroidism, Hx Hypothyroidism Renal/ Medical History: Denies: Hx Kidney Stones, Hx Peritoneal Dialysis Malignancy Medical History: Denies: Hx Leukemia, Hx Lung Cancer GI Medical History: Reports: Hx Gastroesophageal Reflux Disease. Denies: Hx Crohn's Disease, Hx Hepatitis, Hx Hiatal Hernia, Hx Irritable Bowel, Hx Liver Failure, Hx Pancreatitis, Hx Ulcer Musculoskeletal Medical History: Reports Hx Arthritis, Denies Hx Fibromyalgia, Denies Hx Muscular Dystrophy, Denies Hx Systemic Lupus Erythematosus Traumatic Medical History: Denies: Hx Fractures Infectious Medical History: Denies: Hx Hepatitis, Hx HIV Past Surgical History: Denies: Hx Colostomy, Hx Hysterectomy, Hx Mastectomy, Hx Open Heart Surgery, Hx Pacemaker Review of Systems - Review of Systems Notes: REVIEW OF SYSTEMS GENERAL: Negative for any nausea, vomiting, fevers, chills, or weight loss. NEUROLOGIC: Negative for any blurry vision, blind spots, double vision, facial asymmetry, dysphagia, dysarthria, hemiparesis, hemisensory deficits, vertigo, ataxia. HEENT: Negative for any head trauma, neck trauma, neck stiffness, photophobia, phonophobia, sinusitis, rhinitis. CARDIAC: +chest pain, no palpitations PULMONARY: +shortness of breath, + cough GASTROINTESTINAL: Negative for any abdominal pain, nausea, vomiting, bright red blood per rectum, melena. GENITOURINARY: Negative for any dysuria, hematuria, incontinence. INTEGUMENTARY: Negative for any rashes, cuts, insect bites. RHEUMATOLOGIC: Negative for any joint pains HEMATOLOGIC: Negative for any abnormal bruising, frequent infections or bleeding. Physical Exam - Vital signs Vitals: Resp 27 H 06/04/19 13:11 - Notes Notes: Reviewed vital signs and nursing note as charted by RN. CONSTITUTIONAL: 68-year-old woman with chest pain, cough and wheezing. HEENT: Normocephalic; atraumatic; No swelling, PERRL; Conjunctivae clear, no drainage; EOMI, External ears without lesions; External auditory canal is patent; TMs without erythema, landmarks clear and well visualized; no rhinorrhea; Pharynx without erythema or lesions, no tonsillar hypertrophy, airway patent, mucous membranes pink and moist NECK: Supple, no JVD or bruits CARD: Regular rate and rhythm; no murmurs, no rubs, no gallops, no chest wall tenderness RESP: Bilateral wheezes with bibasilar rales ABD/GI: Normal bowel sounds; non-distended; soft, non-tender, no rebound, no guarding, no palpable organomegaly EXT: 2+ edema right lower extremity. 1+ edema left lower extremity SKIN: Warm and dry NEURO: Alert and oriented x3 with no focal motor or sensory or cerebellar abnormalities. Course - Re-evaluation Re-evalutation: 06/04/19 20:11 Patient's O2 sat noted to be in the 80s, increasing wheezing and rales, she is given Lasix 40 mg and placed on BiPAP. Troponins a slight elevation, CTA negative for emboli. Patient is resting comfortably on BiPAP. Pain to the patient that she will need to be brought into the hospital for cardiac and pulmonary related dysfunction. The patient is in agreement with that plan Hospitalist Dr. Murray was called and the patient presentation reviewed. He has requested that the funeral location manager, Dr Jimenez be called and decide if the patient can be managed at [place] this weekend. 06/04/19 20:25 Dr Jimenez was contacted, after a discussion and patient status and now being chest pain-free, is his patient can be admitted. He notes he will see the patient on rounds in the a.m. Dr. Murray will admit the patient to the hospital for further evaluation and treatment. 06/04/19 22:25 Dr. Murray, hospitalist the patient began having chest pain and, we do not have a interventional cardiology service, he is requesting that patient be transferred. Discussion with the patient she has stated that she would like to go to [facility]. I will contact the transfer center and attempt to get the patient transferred. 06/05/19 01:47 Patient has been accepted at the [facility], Dr. Prado, the hospitalist will be the accepting attending. Patient is given aspirin and Lovenox prior to discharge and has continued to be chest pain-free since 2229. Repeat troponin has continued to rise and was 1.39. 06/05/19 01:48 At the time of discharge the patient is alert stable and chest pain-free. She is communicating normally and in no distress. - Vital Signs Vital signs: Temp Pulse Resp BP Pulse Ox 97.8 F 16 117/66 100 06/04/19 21:30 06/05/19 00:30 06/05/19 00:30 06/05/19 00:30 - Laboratory Result Diagrams: 06/04/19 12:54 06/04/19 12:54 Laboratory results interpreted by me: 06/04/19 06/04/19 06/04/19 12:54 12:54 12:54 Hgb 10.8 L Hct 33.1 L MCV 74 L MCH 24.1 L RDW 19.5 H Reticulocyte # 0.139 H Band Neutrophils % 1 L Retic Count (auto) 3.13 H Glucose 147 H Iron CK-MB (CK-2) NT-Pro-B Natriuret Pep Vitamin B12 06/04/19 06/04/19 06/04/19 12:54 16:30 21:55 Hgb Hct MCV MCH RDW Reticulocyte # Band Neutrophils % Retic Count (auto) Glucose Iron 21.2 L CK-MB (CK-2) 6.15 H NT-Pro-B Natriuret Pep 3180 H Vitamin B12 < 159.0 L - Diagnostic Test Radiology reviewed: Image reviewed, Reports reviewed - Chest x-ray: Cardiomegaly with bilateral interstitial changes CTA no pulmonary emboli but bilateral pleural effusions, no filtrates. - EKG Interpretation by Ak EKG shows normal: Sinus rhythm, [place], Intervals, QRS Complexes, ST-T Waves Critical Care Note - Critical Care Note Total time excluding time spent on procedures (mins): 60 - Critical care time spent obtaining history from patient or surrogate, discussions with consultants, development of treatment plan with patient or surrogate, evaluation of patient's response to treatment, examination of patient, ordering and performing treatments and interventions, ordering and review of laboratory studies, re- evaluation of patient's condition, ordering and review of radiographic studies and review of old charts Discharge - Discharge Clinical Impression: NSTEMI (non-ST elevated myocardial infarction) Congestive heart failure Qualifiers: Heart failure type: systolic Heart failure chronicity: acute Qualified Code(s): I50.21 - Acute systolic (congestive) heart failure Condition: Fair Disposition: ADMITTED INPATIENT Admitting Provider: Trevor (Hospitalist) Unit Admitted: IMCU Referrals: KINJAL SU, CHAKA [Primary Care Provider] - Follow up as needed
[2019-06-04] MEDS ORDERED: OXYCODONE-ACETAMINOPHEN 5-325 MG TABLET PO ONE (15:41)
[2019-06-04] MEDS ORDERED: NITROGLYCERIN 2% OINTMENT 1 GM PACKET TP ONE (15:42)
[2019-06-04] MEDS ORDERED: IPRATROPIUM/ALBUTEROL 0.5-2.5 MG/3 ML AMPUL NEB ONE (15:45)
[2019-06-04] MEDS: NITROGLYCERIN 0.4 MG/TAB 25 TAB/BOTTLE SL PRN ×2 (16:02→16:59)
[2019-06-04] MEDS ORDERED: FUROSEMIDE INJ/PF 20 MG/2 ML SDV IV ONE (16:57)
[2019-06-04 17:23] LABS: TROPONIN I 0.667 ng/mL
--- NOTE | 2019-06-04 18:52 | RADIOLOGY REPORT (SQ) ---
EXAM DESCRIPTION: CTA CHEST COMPLETED DATE/TIME: 06/04/2019 6:38 pm REASON FOR STUDY: Chest pain COMPARISON: Chest x-ray 06/04/2019 None. TECHNIQUE: CT scan of the chest performed using helical scanning technique with dynamic intravenous contrast injection. Images reviewed with lung, soft tissue and bone windows. Reconstructed coronal and sagittal MPR images reviewed. Additional 3 dimensional post-processing performed to develop Maximal Intensity Projection images (LA P). All images stored on PACS. All CT scanners at this facility use dose modulation, iterative reconstruction, and/or weight based d osing when appropriate to reduce radiation dose to as low as reasonably achievable (ALARA). [facility]: Dose Right [facility]: CareDose [facility]: Dose Right [facility]: Teradose 4D [facility]: [employer] CONTRAST TYPE AND DOSE: contrast/concentration: Isovue 350.00 mg/ml; Total Contrast Delivered: 61.0 ml; Total Saline Delivered: 80.0 ml Contrast bolus adequate for pulmonary arteries and aorta. RENAL FUNCTION: BUN 9 creatinine 0.98 RADIATION DOSE: CT Rad equipment meets quality standard of care and radiation dose reduction techniq ues were employed. CTDIvol: 16.1 - 19.8 mGy. DLP: 555 mGy-cm. . LIMITATIONS: None. FINDINGS: LUNGS AND PLEURA: Moderate right pleural effusion. Small left pleural effusion. Mild low er lobe atelectasis. Pulmonary vascular congestion. AORTA AND GREAT VESSELS: No aneurysm. No dissection. HEART: No pericardial effusion. Borderline heart size. Moderate to marked coronary artery calcificat ions. PULMONARY ARTERIES: No emboli visualized in the main pulmonary arteries or the segmental branches. HILAR AND MEDIASTINAL STRUCTURES: No identified masses or abnormal nodes. HARDWARE: None in the chest. UPPER ABDOMEN: No significant findings. Limited exam. THYROID AND OTHER SOFT TISSUES: No masses. No adenopathy. BONES: No acute or significant finding. 3D MIPS: Confirm above findings. OTHER: No other significant finding. IMPRESSION: 1. There is no pulmonary embolus. There is no aortic aneurysm or dissection. 2. Borderline heart size with pulmonary vascular congestion but no soila pulmonary edema. 3. Subsegmental atelectasis in the lower lobes. COMMENT: Quality ID # [id number]: Final reports with documentation of one or more dose reduction techniques (e.g., Automated exposure control, adjustment of the mA and/or kV according to patient size, use of iterative reconstruction technique) TECHNICAL DOCUMENTATION: JOB ID: [id number] [employer]- All Rights Reserved Reading location - IP/workstation name: [email or web address]
[2019-06-04] MEDS ORDERED: MAG HYDROX/AL HYDROX/SIMETH SUSP 30 ML UDCUP PO PRN (20:24)
[2019-06-04] MEDS ORDERED: MAGNESIUM HYDROXIDE SUSP 30 ML UDCUP PO PRN (20:24)
[2019-06-04] MEDS ORDERED: ACETAMINOPHEN 325 MG TABLET PO PRN (20:24)
[2019-06-04] MEDS ORDERED: GLUCAGON,HUMAN RECOMB 1 MG INJ IM PRN (20:35)
[2019-06-04] MEDS ORDERED: DEXTROSE 40% GEL 15 GM TUBE PO PRN ×2 (20:35)
[2019-06-04] MEDS ORDERED: DEXTROSE 50%-WATER 25 GM/50 ML DISP.SYRIN IV PRN ×2 (20:35)
[2019-06-04] MEDS ORDERED: PREGABALIN 100 MG CAPSULE PO SCH (20:45)
[2019-06-04 20:46] LABS: ABSOLUTE RETICS # 0.139 10^6/uL (0.028-0.122); RETICULOCYTE COUNT (AUTO) 3.13 % (0.66-2.85)
[2019-06-04 21:10] LABS: IRON(TIBC) 21.2 ug/dL (37-170)
[2019-06-04] MEDS ORDERED: MORPHINE SULFATE 10 MG/ML INJ IV ONE (21:37)
[2019-06-04] MEDS ORDERED: MORPHINE SULFATE 10 MG/ML INJ ONE (21:41)
[2019-06-04] MEDS ORDERED: FUROSEMIDE INJ/PF 20 MG/2 ML SDV IV SCH (22:00)
[2019-06-04] MEDS ORDERED: POTASSIUM CHLORIDE 10 MEQ TABLET.ER PO SCH (22:00)
[2019-06-04] MEDS ORDERED: ENOXAPARIN SODIUM INJ 80 MG/0.8 ML DISP.SYRIN SUBCUT SCH (22:00)
[2019-06-04] MEDS ORDERED: INSULIN GLARGINE,HUM.REC.ANLOG 1,000 UNIT/10 ML VIAL SUBCUT SCH (22:00)
[2019-06-04] MEDS ORDERED: LOSARTAN POTASSIUM 50 MG TABLET PO SCH (22:00)
[2019-06-04] MEDS ORDERED: CARVEDILOL 6.25 MG TABLET PO SCH (22:00)
[2019-06-04] MEDS ORDERED: ATORVASTATIN CALCIUM 80 MG TABLET PO SCH (22:00)
[2019-06-04] MEDS ORDERED: ENOXAPARIN SODIUM INJ 80 MG/0.8 ML DISP.SYRIN SUBCUT ONE ×2 (23:08→23:17)
[2019-06-04 23:09] LABS: CREATINE KINASE MB 6.15 ng/mL (<4.55); TROPONIN I 1.39 ng/mL
[2019-06-04] MEDS ORDERED: ASPIRIN 81 MG TABLET, CHEWABLE ONE (23:17)
[2019-06-05] MEDS ORDERED: MORPHINE SULFATE 10 MG/ML INJ IV ONE (01:52)
[2019-06-05] MEDS ORDERED: MORPHINE SULFATE 10 MG/ML INJ ONE (01:56)
[2019-06-05] MEDS ORDERED: ACETAMINOPHEN 325 MG TABLET PO PRN (01:58)
[2019-06-05 02:00] VITALS: BP 119/65
[2019-06-05] MEDS ORDERED: INSULIN LISPRO 100 UNIT/ML 3 ML VIAL SUBCUT SCH (08:00)
[2019-06-05] MEDS ORDERED: NITROGLYCERIN 2.5 MG (0.1 MG/HR) PATCH.TD24 TD SCH (10:00)
[2019-06-05] MEDS ORDERED: DOCUSATE SODIUM 100 MG CAPSULE PO SCH (10:00)
[2019-06-05] MEDS ORDERED: ASPIRIN 325 MG TABLET PO SCH (10:00)
--- NOTE | 2019-06-05 17:24 | EKG REPORT ---
SEVERITY:- BORDERLINE ECG - SINUS RHYTHM LOW VOLTAGE IN FRONTAL LEADS BORDERLINE T WAVE ABNORMALITIES : Confirmed by: Jose Cavazos MD 05-Jun-2019 17:23:09
== END 2019-06-05 02:00 | disposition short-term general hospital (02) | DRG 280 ==
LOC: ER 13:08 → UNDOADMIN 20:24 → EH 20:24 → UNDOADMIN 20:45 → UNDODISIN 06-05 02:00 → ER 06-05 02:00
PROVIDERS: ADMIT Internal Medicine; ATTEND Internal Medicine
DX: I21.4 Non-ST elevation (NSTEMI) myocardial infarction (principal); I50.21 Acute systolic (congestive) heart failure; E11.9 Type 2 diabetes mellitus without complications; I11.0 Hypertensive heart disease with heart failure; Z96.641 Presence of right artificial hip joint; Z88.8 Allergy status to other drugs, medicaments and biological substances
CPT/HCPCS: 36415; 71045; 71275; 80053; 82550; 82553; 82607; 82728; 82746; 83540; 83550; 83880; 84484; 85025; 85045; 93005; 93010; 94640; 94660; 96372; 96374; 96375; 96376; 99291; J1650; J1940; J2270; J7620